=== PATIENT | male | born 1960 | race Caucasian/White ===

== ENCOUNTER → 2017-09-17 | Outpatient (CLI) | payer OTHER | LOC: GMAL 10:21 | PROVIDERS: ATTEND Family Medicine | DX: M10.9 Gout, unspecified (principal) ==

== ENCOUNTER → 2017-12-25 | Outpatient (CLI) | payer OTHER ==
--- NOTE | 2017-12-25 16:57 | MRI ---
EXAM DESCRIPTION: Lumbar Spine w/o Contrast : Magnetic Resonance Imaging. CLINICAL HISTORY: RADICULOPATHY COMPARISON: None. TECHNIQUE: Multiplanar, multiple standard sequences, non contrast MRI, lumbar spine. FINDINGS: L5-S1: Disc desiccation and disc space loss. Posterior disc bright T2 signal to the right of midline indicating an annular fissure. Posterior broad-based 4 mm disc bulge. AP canal diameter 11 mm. Posterior elements are unremarkable. Moderate to severe bilateral foraminal narrowing. L4-5: Disc desiccation and minimal disc space loss. Disc protruding in the midline and to the right of midline and extending superiorly into the right lateral recess with mass effect on the right L4 descending nerve root with AP canal diameter 7 mm to the right of midline. The disc extrusion is 2 cm above the disc space. Moderate right foraminal narrowing and mild to moderate left foraminal narrowing. Bilateral facet arthrosis. L3-4: Disc desiccation with posterior broad-based bulge 5 mm involving the canal and both foramina. Moderate right foraminal narrowing and mild left foraminal narrowing. Minimal facet arthrosis and bilateral flavum ligament hypertrophy with AP canal diameter 10 mm. L2-3: Normal signal in the disc with disc space preserved. No bulging. Anterior Modic type II endplate reactive changes. Posterior elements unremarkable. Canal and foramina are patent. L1-2: Disc desiccation but no disc space loss. No bulging. Modic type II endplate reactive changes anterior L2. Posterior elements unremarkable. Conus terminates at this level. Canal and foramina are patent. T12-L1: Anterior Modic type II endplate reactive changes with bulging disc and endplate spurs. No posterior disc bulge. Posterior elements unremarkable. Canal and foramina are patent. Reduced lumbar lordosis. Paravertebral soft tissues negative.. Normal marrow signal in the remaining vertebral bodies and the posterior elements. Vertebral bodies are not compressed at any level. IMPRESSION: 1. Herniation of the L4-5 disc to the right of midline with superior extrusion of the disc into the lateral recess with impingement of the descending right L4 nerve. Correlate for right L4 radiculopathy. Mild to moderate canal stenosis to the right of midline. 2. Small annular fissure in the posterior L5-S1 disc to the right of midline. Posterior disc bulge. Moderate canal narrowing. Borderline bilateral foraminal stenosis. 3. Posterior broad-based bulge of the L3-4 disc encroaching on the canal and bilateral foramina. Borderline mild canal stenosis. 4. Anterior endplate spondylosis at multiple levels. Electronically signed by: Phil Ro MD 12/25/2017 4:55 PM [employer]ATE
== END ==
LOC: MRI 11:05
PROVIDERS: ATTEND Family Medicine
DX: M51.26 Other intervertebral disc displacement, lumbar region (principal); M48.061 Spinal stenosis, lumbar region without neurogenic claudication; M47.896 Other spondylosis, lumbar region

== ENCOUNTER → 2019-05-25 | Outpatient (CLI) | payer OTHER | LOC: GMAL 11:14 | PROVIDERS: ATTEND Family Medicine | DX: D51.3 Other dietary vitamin B12 deficiency anemia (principal); E55.9 Vitamin D deficiency, unspecified; R94.5 Abnormal results of liver function studies; E78.2 Mixed hyperlipidemia ==

== ENCOUNTER → 2019-06-18 | Outpatient (CLI) | payer OTHER ==
--- NOTE | 2019-06-18 15:03 | CT ---
EXAM DESCRIPTION: Soft Tissue Neck w/Contrast: Computed Tomography CLINICAL HISTORY: 58 years Male, DYSPHAGIA COMPARISON: None. TECHNIQUE: Spiral, axial 2.5 x 2.5 mm scans through the neck soft tissues after infusion of 75 mL Optiray 320 nonionic IV contrast. Sagittal and coronal 2.0 mm reconstructions. No adverse reactions. Total Exam DLP: 373 mGy-cm. This exam was performed according to our departmental CT dose-optimization program which includes automated exposure control, adjustment of the mA and/or kV according to patient size and/or use of iterative reconstruction technique; to reduce radiation dose to as low as reasonably achievable (ALARA). FINDINGS: The airway appears symmetric with no mass effect or shift from the nasopharynx to the intrathoracic trachea. No abnormal contrast enhancement. Upper tracheal cartilage calcifications. Small lymph nodes in the usual spaces. Largest node is 1.3 x 0.8 cm in the left paracervical space with sharp margins and minimal surrounding fatty density. No asymmetry or abnormal enhancement. Salivary glands, and subcutaneous adipose tissues and fascia are unremarkable. Partially nonenhancing thyroid nodule right lobe measures 12 x 9 mm. Minimal mucoperiosteal thickening in several sinus cavities but no air-fluid levels. No significant carotid vertebral abnormalities in the neck. Included lung ray are unremarkable. No significant spondylosis in the cervical spine. Mastoid air cells are negative internal auditory canals and tympanic cavity bilaterally symmetric.. IMPRESSION: Minimally enlarged node in the left paracervical space but no evidence of reactive changes in the node or adjacent soft tissues. Airway appears symmetric with no effacement or displacement or abnormal enhancement. Paranasal chronic sinusitis. Electronically signed by: Phil Ro MD 06/18/2019 3:01 PM CDT
== END ==
LOC: CT 08:39
PROVIDERS: ATTEND Family Medicine
DX: R13.19 Other dysphagia (principal); J32.9 Chronic sinusitis, unspecified; R59.9 Enlarged lymph nodes, unspecified